=== PATIENT | female | born 1940 | race Caucasian/White ===

== ENCOUNTER 2017-08-19 07:32 | Day surgery (SDC) | payer MEDICARE ==
[~2017-08-19] VITALS: Ht 162.6 cm; Wt 77.1 kg
[~2017-08-19 07:32] MED LIST: /WARF25TA; ACETAMINOPHEN 325 MG TAB PO PRN; BSS with VANC/TOB/EPI for EYE CASES IR ONE; CYCLOPENTOLATE 2% OPHTH SOLN 2ML BTL OS ONE; HEALON DUET (HEALON 10MG/ML 0.55ML & HEALON ENDOCOAT 30MG/ML 0.85ML) As Ordered ONE; LIDOCAINE 1% SDV 5 ML VIAL As Ordered ONE; LIDOCAINE 3.5 % 1ML OPHTH TOPICAL GEL OU ONE; MOXIFLOXACIN IN BSS 0.25MG/0.25ML INTRACAMERAL INJ (OR EYE ONLY)(J2280) As Ordered ONE; MULT1TAB10 PO; OFLOXACIN 0.3 % (OCUFLOX) OPTH SOL 5ML OS ONE; PHENYLEPHRINE 2.5% OPHTH SOL 2ML OS ONE; POVIDONE-IODINE 5% OPHTH PREP SOL 30ML As Ordered ONE; PROPARACAINE 0.5% OPHTH SOL 15ML XX PRN; THERGRAN; TRIAMCINOLONE PRES FR 40 MG/ML 1ML(TRIESENCE)(OR EYE ONLY)(J3300 PER 1MG) As Ordered ONE; TROPICAMIDE 1% OPHTH SOLN 2ML OS ONE; TYL325
[2017-08-19] MEDS ORDERED: LR 1,000 ML IV SCH (07:45)
[2017-08-19] MEDS ORDERED: MIDAZOLAM INJ 2 MG/2 ML VIAL (J2250) As Ordered ONE (08:54)
[2017-08-19] MEDS ORDERED: fentaNYL 100 MCG/2 ML INJECTION (J3010) As Ordered ONE (08:54)
[2017-08-19] MEDS ORDERED: KETOROLAC 0.5% OPHTH SOLN XX ONE (09:30)
[2017-08-19] MEDS ORDERED: AcetaZOLAMIDE 500 MG ER CAP PO ONE (09:30)
[2017-08-19] MEDS ORDERED: TRIMETHOBENZAMIDE 300 MG CAP PO PRN (09:30)
[2017-08-19 09:35] VITALS: BP 120/70
== END 2017-08-19 10:00 | disposition home or self-care (01) ==
LOC: M SDC 07:32
PROVIDERS: ATTEND Ophthalmology
DX: H26.9 Unspecified cataract (principal); Z78.0 Asymptomatic menopausal state; Z96.653 Presence of artificial knee joint, bilateral; Z88.5 Allergy status to narcotic agent; Z90.710 Acquired absence of both cervix and uterus
CPT/HCPCS: 66984; J2250; J2280; J3010; J3300; V2632

== ENCOUNTER 2018-01-06 05:47 | Day surgery (SDC) | payer MEDICARE ==
[2018-01-06] MEDS: TRIAMCINOLONE PRES FR 40 MG/ML 1ML(TRIESENCE)(OR EYE ONLY)(J3300 PER 1MG) As Ordered (06:12)
[2018-01-06] MEDS ORDERED: LIDOCAINE 1% MDV 20ML VIAL SQ (06:15)
[2018-01-06] MEDS: CYCLOPENTOLATE 2% OPHTH SOLN 2ML BTL OD (06:34)
[2018-01-06] MEDS: LIDOCAINE 3.5 % 1ML OPHTH TOPICAL GEL OU (06:34)
[2018-01-06] MEDS: OFLOXACIN 0.3 % (OCUFLOX) OPTH SOL 5ML OD (06:34)
[2018-01-06] MEDS: TROPICAMIDE 1% OPHTH SOLN 2ML OD (06:34)
[2018-01-06] MEDS: PHENYLEPHRINE 2.5% OPHTH SOL 2ML OD (06:34)
[2018-01-06] MEDS ORDERED: PHENYLEPHRINE HCL 10 % OPHTH. SOL 5ML OD (07:00)
[2018-01-06] MEDS ORDERED: fentaNYL 100 MCG/2 ML INJECTION (J3010) As Ordered (07:02)
[2018-01-06] MEDS ORDERED: MIDAZOLAM INJ 2 MG/2 ML VIAL (J2250) As Ordered (07:03)
[2018-01-06] MEDS ORDERED: LIDOCAINE 2% W/EPIN INJ 20ML **PRES FREE As Ordered (07:21)
[2018-01-06] MEDS: POVIDONE-IODINE 5% OPHTH PREP SOL 30ML As Ordered (07:50)
[2018-01-06] MEDS: ACETYLCHOLINE OPHTH SOLN 1% 2ML (MIOCHOL-E) As Ordered (07:51)
[2018-01-06] MEDS: LIDOCAINE 1% SDV 5 ML VIAL As Ordered (07:51)
[2018-01-06] MEDS: BSS with VANC/TOB/EPI for EYE CASES IR (07:51)
[2018-01-06] MEDS: HEALON DUET (HEALON 10MG/ML 0.55ML & HEALON ENDOCOAT 30MG/ML 0.85ML) As Ordered (07:51)
[2018-01-06] MEDS: MOXIFLOXACIN IN BSS 0.25MG/0.25ML INTRACAMERAL INJ (OR EYE ONLY)(J2280) As Ordered (07:51)
== END 2018-01-06 08:41 | disposition home or self-care (01) ==
LOC: M SDC 05:47
DX: H26.9 Unspecified cataract (principal); M12.9 Arthropathy, unspecified; Z90.710 Acquired absence of both cervix and uterus; Z98.51 Tubal ligation status; Z96.653 Presence of artificial knee joint, bilateral
CPT/HCPCS: 66984